=== PATIENT | male | born 1930 | race Caucasian/White ===

== ENCOUNTER 2018-07-07 07:45 | Emergency (ER) | payer MEDICARE ==
[~2018-07-07] VITALS: Ht 177.8 cm; Wt 67.5 kg
[2018-07-07 08:55] LABS: BASOPHILS # (AUTO) 0.03 x10^3/uL (0-0.1); BASOPHILS % (AUTO) 1 % (0-1); EOSINOPHILS # (AUTO) 0.06 x10^3/uL (0-0.4); EOSINOPHILS % (AUTO) 1 % (1-7); LYMPHOCYTES # (AUTO) 0.84 x10^3/uL (1-3.4); LYMPHOCYTES % (AUTO) 19 % (22-44); MD NO; MEAN CORPUSCULAR HEMOGLOBIN 31.3 pg (27.5-34.5); MEAN CORPUSCULAR HGB CONC 33.3 g/dL (33.2-36.2); MEAN CORPUSCULAR VOLUME 94.1 fL (81-97); MEAN PLATELET VOLUME 7.1 fL (7.4-10.4); MONOCYTES # (AUTO) 0.31 x10^3/uL (0.2-0.8); MONOCYTES % (AUTO) 7 % (2-9); NEUTROPHILS # (AUTO) 3.27 x10^3/uL (1.8-6.8); NEUTROPHILS % (AUTO) 73 % (42-75); PLATELET COUNT 210 x10^3/uL (130-400); RED CELL DISTRIBUTION WIDTH 13.6 % (9.4-14.8)
[2018-07-07 09:02] LABS: INTERNATIONAL NORMALIZED RATIO 1.04 (0.93-1.1); PROTHROMBIN TIME 10.7 Seconds (9.6-11.5)
[2018-07-07 09:05] LABS: ALANINE AMINOTRANSFERASE 25 U/L (12-78); ALBUMIN 3.5 g/dL (3.4-5.0); ANION GAP 5 mmol/L (5-15); CALCIUM 8.9 mg/dL (8.5-10.1); CHLORIDE 108 mmol/L (98-107); CREATININE 1.63 mg/dL (0.7-1.3)
[2018-07-07 09:07] LABS: ALKALINE PHOSPHATASE 54 U/L (45-117); BILIRUBIN,TOTAL 0.5 mg/dL (0.2-1.0); TOTAL PROTEIN 6.2 g/dL (6.4-8.2)
[2018-07-07] MEDS ORDERED: SODIUM CHLORIDE 0.9% 1,000ML IVBOLUS ONE (09:30)
[2018-07-07 09:38] LABS: MICROSCOPIC INDICATED
[2018-07-07 09:42] LABS: CULTURE INDICATED? YES
[2018-07-07] MEDS ORDERED: OMNIPAQUE 350 MG/ML, 150 ML BOTTLE ONE (09:43)
[2018-07-07] MEDS ORDERED: TAMS-11 PO (09:59)
[2018-07-07] MEDS ORDERED: LISI1TAB7 PO (09:59)
[2018-07-07 11:41] VITALS: BP 141/67
== END 2018-07-07 11:45 | disposition home or self-care (01) ==
LOC: ED 08:58
DX: R31.0 Gross hematuria (principal); I10 Essential (primary) hypertension
CPT/HCPCS: 36415; 51702; 74178; 80053; 81001; 83605; 85025; 85610; 87086; 99285; J7030; Q9967